=== PATIENT | male | born 1965 | race Hispanic/Latino ===

== ENCOUNTER 2024-05-11 19:31 | Emergency (ER) | payer SELFPAY ==
[~2024-05-11] VITALS: Ht 165.1 cm; Wt 74.8 kg
[2024-05-11 19:56] VITALS: PULSE 63; RESP 22; TEMP 98.2
[2024-05-11] MEDS: ONDANSETRON HCL INJ 2MG/ML 2ML 2 MG/ML VIAL IV STA (21:03)
[2024-05-11] MEDS: Morphine 4mg INJECTION 4 MG/ML INJ IV PRN (21:03)
[2024-05-11] MEDS ORDERED: ETOMIDATE 40 MG/ 20ML VIAL IV ONE (21:18)
[2024-05-11] MEDS: ETOMIDATE 2 MG/ML 10 ML INJ IV STA (21:36)
[2024-05-11] MEDS ORDERED: HYDROCODON-ACE1 EA12 PO (21:58)
[2024-05-11 22:25] VITALS: BP 163/90; PULSE 78; RESP 16; TEMP 98; O2SAT 99
== END 2024-05-11 22:20 | disposition home or self-care (01) ==
LOC: ER 19:40
DX: S52.121A Displaced fracture of head of right radius, initial encounter for closed fracture (principal); W01.0XXA Fall on same level from slipping, tripping and stumbling without subsequent striking against object, initial encounter; Y93.01 Activity, walking, marching and hiking; Y92.89 Other specified places as the place of occurrence of the external cause
CPT/HCPCS: 24655; 73080; 73090; 73110; 99284; J2270; J2405